=== PATIENT | male | born 1945 | race Caucasian/White ===

== ENCOUNTER 2021-01-10 12:08 | Outpatient (CLI) | payer MEDICARE | END 2021-01-10 12:09 | disposition home or self-care (01) | LOC: ULT 12:08 | PROVIDERS: ATTEND Family Medicine | DX: I73.9 Peripheral vascular disease, unspecified (principal) | CPT/HCPCS: 93922 ==

== ENCOUNTER 2022-11-23 11:19 | Outpatient (CLI) | payer MEDICARE | END 2022-11-23 11:20 | disposition home or self-care (01) | LOC: ULT 11:19 | PROVIDERS: ATTEND Internal Medicine | DX: I73.9 Peripheral vascular disease, unspecified (principal) | CPT/HCPCS: 93923 ==